=== PATIENT | male | born 1960 | race Caucasian/White ===

== ENCOUNTER 2017-11-28 09:01 | Emergency (ER) | payer OTHER ==
[2017-11-28 09:14] VITALS: O2SAT 98
--- NOTE | 2017-11-28 09:38 | ERPHSYRPT ---
- History of Present Illness Time Seen by Provider: 11/28/17 09:27 Source: patient Exam Limitations: no limitations Patient Subjective Stated Complaint: Chest Pain x2 intermittent, no pain at this time. Triage Nursing Assessment: Pt presents to the ED with complaints of intermittent chest pain x2 days. Pt states he was sent from PCP for complaint due to ekg changes. Pt states no pain at this time. Pt states there is nothing that makes pain better or worse. No distress noted, skin PWD. Physician History: The patient is a 57-year-old male who comes in after being seen at a [facility] for intermittent chest pain. At [facility] he had an EKG done which was claimed to be abnormal. His intermittent chest pain has been occurring for the past 3 days. The chest pain occurs at any time of the day. It will last for 5- 7 minutes. It is on the left side. He considers the pain to be an ache. It is a 2 out of 10 when it occurs. At this time he is not having any chest pain. He denies shortness of breath, nausea, or sweating. He has smoked cigarettes for the past 45 years and quit 5 days ago. He has been on Chantix since November 12. His past medical history is significant for diabetes. He has no surgical history. Timing/Duration: day(s) (3), intermittent, resolved prior to arrival, sudden Severity: mild Modifying Factors: Improves With: nothing Associated Symptoms: chest pain Allergies/Adverse Reactions: No Known Drug Allergies Allergy (Unverified 02/15/16 04:20) Home Medications: Albuterol Sulfate Mdi [Proair Hfa MDI] 2 puff IH Q4HPRN PRN 11/28/17 [ History] Insulin Aspart [Novolog Flexpen] 1 unit SQ ACHS PRN 11/28/17 [History] Metformin HCl [Metformin HCl] 1,000 mg PO BID 11/28/17 [History] Varenicline Tartrate [Chantix] 1 tab PO DAILY 11/28/17 [History] Hx Tetanus, Diphtheria Vaccination/Date Given: No Hx Influenza Vaccination/Date Given: Yes Hx Pneumococcal Vaccination/Date Given: No Immunizations Up to Date: Yes - Review of Systems Constitutional: No Fever, No Chills Eyes: No Symptoms Ears, Nose, & Throat: No Symptoms Respiratory: No Cough, No Dyspnea Cardiac: Chest Pain Abdominal/Gastrointestinal: No Abdominal Pain, No Nausea, No Vomiting, No Diarrhea Genitourinary Symptoms: No Dysuria Musculoskeletal: No Back Pain, No Neck Pain Skin: No Rash Neurological: No Dizziness, No Focal Weakness, No Sensory Changes Psychological: No Symptoms Endocrine: No Symptoms Hematologic/Lymphatic: No Symptoms Immunological/Allergic: No Symptoms All Other Systems: Reviewed and Negative - Past Medical History Pertinent Past Medical History: No Neurological History: No Pertinent History ENT History: No Pertinent History Cardiac History: No Pertinent History Respiratory History: No Pertinent History Endocrine Medical History: Diabetes Type II Musculoskeletal History: No Pertinent History GI Medical History: No Pertinent History History: No Pertinent History Psycho-Social History: No Pertinent History Male Reproductive Disorders: No Pertinent History - Past Surgical History Past Surgical History: No - Social History Smoking Status: Current every day smoker How long have you smoked: 45 years Exposure to second hand smoke: Yes Drug Use: none Patient Lives Alone: No - Nursing Vital Signs Nursing Vital Signs: Initial Vital Signs Temperature 98.5 F 11/28/17 09:10 Pulse Rate 67 11/28/17 09:10 Respiratory Rate 20 11/28/17 09:10 Blood Pressure 120/78 11/28/17 09:10 O2 Sat by Pulse Oximetry 98 11/28/17 09:10 Pain Scale Pain Intensity 0 - Physical Exam General Appearance: no apparent distress, alert Eye Exam: PERRL/EOMI, eyes nml inspection Ears, Nose, Throat Exam: normal ENT inspection, TMs normal, pharynx normal, moist mucous membranes Neck Exam: normal inspection, non-tender, supple, full range of motion Respiratory Exam: normal breath sounds, lungs clear, No respiratory distress Cardiovascular Exam: regular rate/rhythm, normal heart sounds, normal peripheral pulses Gastrointestinal/Abdomen Exam: soft, normal bowel sounds, No tenderness, No mass Rectal Exam: not done Back Exam: normal inspection, normal range of motion, No CVA tenderness, No vertebral tenderness Extremity Exam: normal inspection, normal range of motion, pelvis stable Neurologic Exam: alert, oriented x 3, cooperative, normal mood/affect, nml cerebellar function, nml station & gait, sensation nml, No motor deficits Skin Exam: normal color, warm, dry, No rash Lymphatic Exam: No adenopathy SpO2 Interpretation: normal SpO2: 98 Oxygen Delivery: Room Air - Course EKG Interpreted by Me: RATE, Sinus Rhythm, NORMAL AXIS, NORMAL INTERVALS, NORMAL QRS, NORMAL ST-T - Radiology Exams Chest X-ray Interpretation: Reviewed by me, Teleradiologist Report, Negative (Per Dr Jo) Ordered Tests: Active Orders 24 hr Category Date Time Status Streetcar Dispatcher STAT Care 11/28/17 09:43 Active EKG-ER Only STAT Care 11/28/17 09:42 Active IV Insertion STAT Care 11/28/17 09:42 Active CHEST 2 VIEWS (PA AND LAT) Stat Exams 11/28/17 09:42 Completed CBC W DIFF Stat Lab 11/28/17 10:01 Completed CMP Stat Lab 11/28/17 10:01 Completed D-DIMER QUANTITATION Stat Lab 11/28/17 10:01 Completed NT PRO BNP Stat Lab 11/28/17 10:01 Completed PROTIME WITH INR Stat Lab 11/28/17 10:01 Completed PTT Stat Lab 11/28/17 10:01 Completed TROPONIN Q3H Lab 11/28/17 10:01 Completed TROPONIN Q3H Lab 11/28/17 12:45 Ordered TROPONIN Q3H Lab 11/28/17 15:45 Ordered TROPONIN Q3H Lab 11/28/17 18:45 Ordered TROPONIN Q3H Lab 11/28/17 21:45 Ordered Medication Summary Discontinued Medications Generic Name Dose Route Start Last Admin Trade Name Freq PRN Reason Stop Dose Admin Aspirin 324 mg 11/28/17 09:42 11/28/17 09:54 Baby Aspirin 81 Mg Chew PO 11/28/17 09:43 324 mg STAT ONE Administration Aspirin Confirm 11/28/17 09:54 Baby Aspirin 81 Mg Chew Administered 11/28/17 09:55 Dose 324 mg .ROUTE .STK-MED ONE Lab/Rad Data: Laboratory Result Diagrams 11/28/17 10:01 11/28/17 10:01 Laboratory Results 11/28/17 11/28/17 11/28/17 Range/Units 10:01 10:01 10:01 WBC (4.0-10.5) K/mm3 RBC (4.1-5.6) M/mm3 Hgb (12.5-18.0) gm/dl Hct (42-50) % MCV (78-100) fl MCH (26-32) pg MCHC (32-36) g/dl RDW (11.5-14.0) % Plt Count (150-450) K/mm3 MPV (6-9.5) fl Gran % (36.0-66.0) % Eos # (Auto) (0-0.5) Absolute Lymphs (auto) (1.0-4.6) Absolute Monos (auto) (0.0-1.3) Lymphocytes % (24.0-44.0) % Monocytes % (0.0-12.0) % Eosinophils % (0.00-5.0) % Basophils % (0.0-0.4) % Absolute Granulocytes (1.4-6.9) Basophils # (0-0.4) PT 10.9 (8.83-12.87) SECONDS INR 0.94 (0.8-3.0) APTT 39.1 H (24.1-36.1) SECONDS D-Dimer < 215 L (215-500) ng/mL Sodium 140 (137-145) mmol/L Potassium 4.3 (3.5-5.1) mmol/L Chloride 104 (98-107) mmol/L Carbon Dioxide 28 (22-30) mmol/L Anion Gap 12.1 (5-15) MEQ/L BUN 19 (9-20) mg/dL Creatinine 0.93 (0.66-1.25) mg/dL Estimated GFR > 60.0 ML/MIN Glucose 119 H (74-106) mg/dL Calcium 9.7 (8.4-10.2) mg/dL Total Bilirubin 1.10 (0.2-1.3) mg/dL AST 13 L (17-59) U/L ALT 14 (0-50) U/L Alkaline Phosphatase 76 (38-126) U/L Troponin I < 0.012 (0.000-0.034) ng/mL NT-Pro-B Natriuret Pep 68.1 (0-900) pg/mL Serum Total Protein 6.4 (6.3-8.2) g/dL Albumin 4.1 (3.5-5.0) g/dL 11/28/17 Range/Units 10:01 WBC 8.4 (4.0-10.5) K/mm3 RBC 4.45 (4.1-5.6) M/mm3 Hgb 13.6 (12.5-18.0) gm/dl Hct 40.1 L (42-50) % MCV 90.1 (78-100) fl MCH 30.6 (26-32) pg MCHC 33.9 (32-36) g/dl RDW 12.5 (11.5-14.0) % Plt Count 224 (150-450) K/mm3 MPV 11.5 H (6-9.5) fl Gran % 65.9 (36.0-66.0) % Eos # (Auto) 0.14 (0-0.5) Absolute Lymphs (auto) 1.96 (1.0-4.6) Absolute Monos (auto) 0.73 (0.0-1.3) Lymphocytes % 23.3 L (24.0-44.0) % Monocytes % 8.7 (0.0-12.0) % Eosinophils % 1.7 (0.00-5.0) % Basophils % 0.4 (0.0-0.4) % Absolute Granulocytes 5.56 (1.4-6.9) Basophils # 0.03 (0-0.4) PT (8.83-12.87) SECONDS INR (0.8-3.0) APTT (24.1-36.1) SECONDS D-Dimer (215-500) ng/mL Sodium (137-145) mmol/L Potassium (3.5-5.1) mmol/L Chloride (98-107) mmol/L Carbon Dioxide (22-30) mmol/L Anion Gap (5-15) MEQ/L BUN (9-20) mg/dL Creatinine (0.66-1.25) mg/dL Estimated GFR ML/MIN Glucose (74-106) mg/dL Calcium (8.4-10.2) mg/dL Total Bilirubin (0.2-1.3) mg/dL AST (17-59) U/L ALT (0-50) U/L Alkaline Phosphatase (38-126) U/L Troponin I (0.000-0.034) ng/mL NT-Pro-B Natriuret Pep (0-900) pg/mL Serum Total Protein (6.3-8.2) g/dL Albumin (3.5-5.0) g/dL - Progress Progress Note: 11/28/17 11:24 I have discussed the patient states care with Dr. Pena. We discussed the possibility of unstable angina versus intermittent chest pain. I described the past 3 days of the patient. Dr. Pena recommends the patient be released to home with follow-up with him early next week. Dr. Pena was set up a cardiology appointment for the patient. Counseled pt/family regarding: lab results, diagnosis, need for follow-up, rad results - Departure Time of Disposition: 10:55 Departure Disposition: Home Clinical Impression: Intermittent left-sided chest pain Condition: Stable Critical Care Time: No Referrals: RAJESH PENA MD [Primary Care Provider] - Additional Instructions: You have intermittent chest pain. You were given aspirin 324 mg orally in the ER. At this time your laboratory results were all normal. I discussed the laboratory findings as well as the chest x-ray and EKG with Dr. Pena. Dr. Pena recommends that you be released to home with follow-up in his office early next week. If you develops any more significant worsening chest pain, please return to the ER immediately.
[2017-11-28] MEDS ORDERED: BABY ASPIRIN 81 MG CHEW PO ONE (09:42)
[2017-11-28] MEDS ORDERED: BABY ASPIRIN 81 MG CHEW ONE (09:54)
[2017-11-28 10:04] LABS: BASOPHIL % 0.4 % (0.0-0.4); Basophil (Absolute #) 0.03 (0-0.4); Eosinophil % 1.7 % (0.00-5.0); Eosinophil (Absolute #) 0.14 (0-0.5); Granulocyte Absolute (ANC) 5.56 (1.4-6.9); Granulocytes % 65.9 % (36.0-66.0); Hematocrit 40.1 % (42-50); Hemoglobin 13.6 gm/dl (12.5-18.0); Lymphocyte (Absolute #) 1.96 (1.0-4.6); Lymphocytes % 23.3 % (24.0-44.0); Mean Cell Volume 90.1 fl (78-100); Mean Corpuscular Hemoglobin 30.6 pg (26-32); Mean Corpuscular Hgb Concent. 33.9 g/dl (32-36); Mean Platelet Volume 11.5 fl (6-9.5); Monocyte (Absolute #) 0.73 (0.0-1.3); Monocytes % 8.7 % (0.0-12.0); Platelet Count 224 K/mm3 (150-450); Red Blood Count 4.45 M/mm3 (4.1-5.6); Red Cell Distribution Width 12.5 % (11.5-14.0); White Blood Count 8.4 K/mm3 (4.0-10.5)
[2017-11-28 10:27] LABS: INR 0.94 (0.8-3.0)
[2017-11-28 10:30] LABS: PTT 39.1 SECONDS (24.1-36.1)
[2017-11-28 10:32] LABS: ALBUMIN 4.1 g/dL (3.5-5.0); ALKALINE PHOSPHATASE 76 U/L (38-126); ANION GAP 12.1 MEQ/L (5-15); BLOOD UREA NITROGEN 19 mg/dL (9-20); CHLORIDE 104 mmol/L (98-107); Calcium 9.7 mg/dL (8.4-10.2); Carbon Dioxide 28 mmol/L (22-30); Creatinine 1 0.93 mg/dL (0.66-1.25); Glucose 119 mg/dL (74-106); Potassium 4.3 mmol/L (3.5-5.1); SGOT/AST 13 U/L (17-59); SGPT/ALT 14 U/L (0-50); SODIUM 140 mmol/L (137-145); Total Protein 6.4 g/dL (6.3-8.2)
[2017-11-28 10:34] LABS: D-DIMER QUANTITATION < 215 ng/mL (215-500)
--- NOTE | 2017-11-28 10:34 | XRAY ---
Exam: Two-view chest from 11/28/2017. Comparison: Two-view chest from 02/15/2016. Indication: Left-sided chest pain 3 days. Findings: Upright PA and lateral chest films are submitted for evaluation. The heart size and contour are normal. The carmen and mediastinal structures appear unremarkable. EKG leads are seen in place. There is adequate inflation of the lungs. No focal air space infiltrates, vascular congestion, pneumothorax, or pleural fluid is seen. There is a subtle symmetric density overlying each lung base which may represent the patient's nipples. These are not seen on the lateral image. No acute osseous process is seen. Impression: 1. No acute cardiopulmonary disease is seen. The findings appears similar to 02/15/2016.
[2017-11-28 10:41] LABS: NT PRO BNP 68.1 pg/mL (0-900)
[2017-11-28 11:52] VITALS: BP 114/76; PULSE 80
== END 2017-11-28 11:52 | disposition home or self-care (01) ==
LOC: ED 09:01
DX: R07.9 Chest pain, unspecified (principal); Z79.899 Other long term (current) drug therapy; E11.9 Type 2 diabetes mellitus without complications; Z79.4 Long term (current) use of insulin
CPT/HCPCS: 36000; 36415; 71046; 80053; 83880; 84484; 85025; 85379; 85610; 85730; 93005; 93041; 99284; A9270-GY

== ENCOUNTER 2021-10-27 12:32 | Emergency (ER) | payer OTHER ==
[2021-10-27] MEDS ORDERED: Sodium Chloride 0.9% 1000 ML 1,000 ML IV STA (12:52)
[2021-10-27] MEDS ORDERED: Zofran 4 MG/2 ML VIAL IV ONE (12:54)
[2021-10-27] MEDS ORDERED: SUBLIMAZE 100 MCG/2 ML IV ONE (12:54)
[2021-10-27] MEDS ORDERED: Zofran 4 MG/2 ML VIAL ONE (13:05)
[2021-10-27] MEDS ORDERED: SUBLIMAZE 100 MCG/2 ML ONE (13:06)
[2021-10-27] MEDS ORDERED: Sodium Chloride 0.9% 1000 ML 1,000 ML ONE (13:06)
[2021-10-27 13:23] LABS: Absolute Neutrophil Ct (ANC) 4.21 (1.4-6.9); Basophil (Absolute #) 0.03 (0-0.4); Eosinophil % 1.8 % (0.00-5.0); Eosinophil (Absolute #) 0.11 (0-0.5); Hematocrit 42.2 % (42-50); Hemoglobin 14.5 gm/dl (12.5-18.0); Lymphocyte (Absolute #) 1.56 (1.0-4.6); Lymphocytes % 24.9 % (24.0-44.0); Mean Cell Volume 89.4 fl (78-100); Mean Corpuscular Hemoglobin 30.7 pg (26-32); Mean Corpuscular Hgb Concent. 34.4 g/dl (32-36); Mean Platelet Volume 11.5 fl (7.5-11.0); Monocyte (Absolute #) 0.36 (0.0-1.3); Monocytes % 5.7 % (0.0-12.0); Neutrophil % 67.1 % (36.0-66.0); Platelet Count 179 K/mm3 (150-450); Red Blood Count 4.72 M/mm3 (4.1-5.6); Red Cell Distribution Width 12.2 % (11.5-14.0); White Blood Count 6.3 K/mm3 (4.0-10.5)
[2021-10-27 13:32] LABS: INR 1.03 (0.8-3.0); PROTIME 12.2 SECONDS (9.4-12.5)
--- NOTE | 2021-10-27 13:35 | ERPHSYRPT ---
- History of Present Illness Time Seen by Provider: 10/27/21 12:55 Historian: patient, family Exam Limitations: no limitations Patient Subjective Stated Complaint: pt here for pain to middle right back pain that radiates to front for over a month. 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 He has not sought medical attention and he kept expecting to break out in a rash from shingles since it is sensitive to touch. He did have an appointment scheduled with Dr. Pena on Friday. He has not had any rash and has not complained of any fever chills or sweats nausea vomiting or diarrhea. Timing/Duration: week(s) (4) Activities at Onset: none Quality: burning, stabbing Location: other (Right flank into the right side of the abdomen and right chest.) Severity of Pain-Max: severe Severity of Pain-Current: moderate Modifying Factors: Improves With: nothing Associated Symptoms: denies symptoms Nitro Today/Relief: no nitro taken today Aspirin Treatment Today: no aspirin today Allergies/Adverse Reactions: No Known Drug Allergies Allergy (Verified 10/27/21 12:53) Home Medications: Albuterol Sulfate Mdi [Proair Hfa MDI] 2 puff IH Q4HPRN PRN 11/28/17 [History] Insulin Aspart [Novolog Flexpen] 1 unit SQ ACHS PRN 11/28/17 [History] Gabapentin 300 mg [Neurontin 300 mg] 1 ea TID 10/27/21 [History] Hx Tetanus, Diphtheria Vaccination/Date Given: No Hx Influenza Vaccination/Date Given: Yes Hx Pneumococcal Vaccination/Date Given: No Immunizations Up to Date: Yes Travel Risk - International Travel Have you traveled outside of the country in past 3 weeks: No - Coronavirus Screening Are you exhibiting any of the following symptoms?: No - Vaccine Status Have you recieved a Covid-19 vaccination: Yes [employer]: [employer] - Vaccination Dates Date of 2cond Vaccination (if applicable): 2020 - Review of Systems Constitutional: No Fever, No Chills Eyes: No Symptoms Ears, Nose, & Throat: No Symptoms Respiratory: No Cough, No Dyspnea Cardiac: Chest Pain, No Edema, No Syncope Abdominal/Gastrointestinal: Abdominal Pain, No Nausea, No Vomiting, No Diarrhea Genitourinary Symptoms: Flank Pain, No Dysuria Musculoskeletal: No Back Pain, No Neck Pain Skin: No Rash Neurological: No Dizziness, No Focal Weakness, No Sensory Changes Psychological: No Symptoms Endocrine: No Symptoms All Other Systems: Reviewed and Negative - Past Medical History Pertinent Past Medical History: Yes Neurological History: No Pertinent History ENT History: No Pertinent History Cardiac History: No Pertinent History Respiratory History: No Pertinent History Endocrine Medical History: Diabetes Type II Musculoskeletal History: No Pertinent History GI Medical History: No Pertinent History History: No Pertinent History Psycho-Social History: No Pertinent History Male Reproductive Disorders: No Pertinent History - Past Surgical History Past Surgical History: No - Social History Smoking Status: Current every day smoker How long have you smoked: 45 years Exposure to second hand smoke: Yes Drug Use: none Patient Lives Alone: No - Nursing Vital Signs Nursing Vital Signs: Initial Vital Signs Temperature 98.0 F 10/27/21 12:47 Pulse Rate 77 10/27/21 12:47 Respiratory Rate 18 10/27/21 12:47 Blood Pressure 119/78 10/27/21 12:47 O2 Sat by Pulse Oximetry 98 10/27/21 12:47 Pain Scale Pain Intensity [Right Back] 8 Pain Intensity 8 - Physical Exam General Appearance: mild distress, alert Eye Exam: PERRL/EOMI, eyes nml inspection Ears, Nose, Throat Exam: normal ENT inspection, moist mucous membranes Neck Exam: normal inspection, non-tender, supple, full range of motion Respiratory Exam: normal breath sounds, lungs clear, No respiratory distress Cardiovascular Exam: regular rate/rhythm, normal heart sounds Gastrointestinal/Abdomen Exam: soft, No tenderness, No mass Back Exam: normal inspection, No CVA tenderness, No vertebral tenderness Extremity Exam: normal inspection, normal range of motion Neurologic Exam: alert, oriented x 3, cooperative, normal mood/affect, sensation nml, No motor deficits Skin Exam: normal color, warm, dry SpO2: 98 - Course Nursing assessment & vital signs reviewed: Yes EKG Interpreted by Me: RATE (73), NORMAL AXIS, NORMAL INTERVALS, NORMAL QRS, NORMAL ST-T Ordered Tests: Active Orders 24 hr Category Date Time Status EKG-ER Only STAT Care 10/27/21 12:52 Active IV Insertion STAT Care 10/27/21 12:54 Active ABDOMEN AND PELVIS W CONTRAST [CT] Stat Exams 10/27/21 12:54 Taken CHEST WITH CONTRAST [CT] Stat Exams 10/27/21 12:53 Taken AMYLASE Stat Lab 10/27/21 13:20 Completed CBC W DIFF Stat Lab 10/27/21 13:20 Completed CK-Creatinine Phosphokinase Stat Lab 10/27/21 13:20 Completed CMP Stat Lab 10/27/21 13:20 Completed D-DIMER QUANTITATIVE Stat Lab 10/27/21 13:20 Completed LIPASE Stat Lab 10/27/21 13:20 Completed Lactic Acid Stat Lab 10/27/21 13:15 Completed PROTIME WITH INR Stat Lab 10/27/21 13:20 Completed TROPONIN Q3H Lab 10/27/21 13:20 Completed TROPONIN Q3H Lab 10/27/21 16:00 Ordered TROPONIN Q3H Lab 10/27/21 19:00 Ordered TROPONIN Q3H Lab 10/27/21 22:00 Ordered TROPONIN Q3H Lab 10/28/21 01:00 Ordered UA W/RFX CULTURE Stat Lab 10/27/21 13:33 Completed Medication Summary Discontinued Medications Generic Name Dose Route Start Last Admin Trade Name Colleen PRN Reason Stop Dose Admin Fentanyl Citrate 50 mcg 10/27/21 12:54 10/27/21 13:08 Fentanyl Citrate 100 Mcg/2 Ml* Vial IV 10/27/21 12:55 50 mcg STAT ONE Administration Fentanyl Citrate Confirm 10/27/21 13:06 Fentanyl Citrate 100 Mcg/2 Ml* Vial Administered 10/27/21 13:07 Dose 100 mcg .ROUTE .STK-MED ONE Sodium Chloride 1,000 mls @ 999 mls/hr 10/27/21 12:52 10/27/21 14:16 Sodium Chloride 0.9% 1000 Ml IV 10/27/21 13:52 Infused .Q1H1M STA Infusion Sodium Chloride Confirm 10/27/21 13:06 Sodium Chloride 0.9% 1000 Ml Administered 10/27/21 13:07 Dose 1,000 mls @ ud .ROUTE .STK-MED ONE Ondansetron HCl 4 mg 10/27/21 12:54 10/27/21 13:08 Ondansetron Hcl 4 Mg/2 Ml Vial IV 10/27/21 12:55 4 mg STAT ONE Administration Ondansetron HCl Confirm 10/27/21 13:05 Ondansetron Hcl 4 Mg/2 Ml Vial Administered 10/27/21 13:06 Dose 4 mg .ROUTE .STK-MED ONE Lab/Rad Data: Laboratory Result Diagrams 10/27/21 13:20 10/27/21 13:20 Laboratory Results 10/27/21 10/27/21 10/27/21 Range/Units 13:33 13:20 13:20 WBC (4.0-10.5) K/mm3 RBC (4.1-5.6) M/mm3 Hgb (12.5-18.0) gm/dl Hct (42-50) % MCV (78-100) fl MCH (26-32) pg MCHC (32-36) g/dl RDW (11.5-14.0) % Plt Count (150-450) K/mm3 MPV (7.5-11.0) fl Gran % (36.0-66.0) % Eos # (Auto) (0-0.5) Absolute Lymphs (auto) (1.0-4.6) Absolute Monos (auto) (0.0-1.3) Lymphocytes % (24.0-44.0) % Monocytes % (0.0-12.0) % Eosinophils % (0.00-5.0) % Basophils % (0.0-0.4) % Absolute Granulocytes (1.4-6.9) Basophils # (0-0.4) PT 12.2 (9.4-12.5) SECONDS INR 1.03 (0.8-3.0) D-Dimer 377 (215-500) ng/mL Sodium (137-145) mmol/L Potassium (3.5-5.1) mmol/L Chloride (98-107) mmol/L Carbon Dioxide (22-30) mmol/L Anion Gap (5-15) MEQ/L BUN (9-20) mg/dL Creatinine (0.66-1.25) mg/dL Estimated GFR ML/MIN Glucose (74-106) mg/dL Lactic Acid (0.4-2.0) Calcium (8.4-10.2) mg/dL Total Bilirubin (0.2-1.3) mg/dL AST (17-59) U/L ALT (0-50) U/L Alkaline Phosphatase (38-126) U/L Creatine Kinase (55-170) U/L Troponin I < 0.012 (0.000-0.034) ng/mL Serum Total Protein (6.3-8.2) g/dL Albumin (3.5-5.0) g/dL Amylase (30-110) U/L Lipase (23-300) U/L Urinalys Dipstick Clnc MAIN LAB Urine Color YELLOW (YELLOW) Urine Appearance CLEAR (CLEAR) Urine pH 7.5 (5-6) Ur Specific [place] 1.020 (1.005-1.025) POC Urine Protein Conf NEGATIVE (Negative) Urine Ketones NEGATIVE (NEGATIVE) Urine Nitrite NEGATIVE (NEGATIVE) Urine Bilirubin NEGATIVE (NEGATIVE) Urine Urobilinogen 1 (0-1) mg/dL Urine Leukocytes NEGATIVE (NEGATIVE) Urine WBC (Auto) NONE (0-5) /HPF Urine RBC (Auto) NONE (0-2) /HPF U Epithel Cells (Auto) NONE (FEW) /HPF Urine Bacteria (Auto) NONE (NEGATIVE) /HPF Urine RBC NEGATIVE (0-5) Omar/ul Ur Culture Indicated? NO Urine Glucose >=1000 (NEGATIVE) mg/dL 10/27/21 10/27/21 10/27/21 Range/Units 13:20 13:20 13:15 WBC 6.3 (4.0-10.5) K/mm3 RBC 4.72 (4.1-5.6) M/mm3 Hgb 14.5 (12.5-18.0) gm/dl Hct 42.2 (42-50) % MCV 89.4 (78-100) fl MCH 30.7 (26-32) pg MCHC 34.4 (32-36) g/dl RDW 12.2 (11.5-14.0) % Plt Count 179 (150-450) K/mm3 MPV 11.5 H (7.5-11.0) fl Gran % 67.1 H (36.0-66.0) % Eos # (Auto) 0.11 (0-0.5) Absolute Lymphs (auto) 1.56 (1.0-4.6) Absolute Monos (auto) 0.36 (0.0-1.3) Lymphocytes % 24.9 (24.0-44.0) % Monocytes % 5.7 (0.0-12.0) % Eosinophils % 1.8 (0.00-5.0) % Basophils % 0.5 (0.0-0.4) % Absolute Granulocytes 4.21 (1.4-6.9) Basophils # 0.03 (0-0.4) PT (9.4-12.5) SECONDS INR (0.8-3.0) D-Dimer (215-500) ng/mL Sodium 138 (137-145) mmol/L Potassium 4.1 (3.5-5.1) mmol/L Chloride 103 (98-107) mmol/L Carbon Dioxide 26 (22-30) mmol/L Anion Gap 13.4 (5-15) MEQ/L BUN 20 (9-20) mg/dL Creatinine 0.89 (0.66-1.25) mg/dL Estimated GFR > 60.0 ML/MIN Glucose 293 H (74-106) mg/dL Lactic Acid 1.6 (0.4-2.0) Calcium 9.0 (8.4-10.2) mg/dL Total Bilirubin 1.70 H (0.2-1.3) mg/dL AST 24 (17-59) U/L ALT 18 (0-50) U/L Alkaline Phosphatase 91 (38-126) U/L Creatine Kinase 55 (55-170) U/L Troponin I (0.000-0.034) ng/mL Serum Total Protein 6.4 (6.3-8.2) g/dL Albumin 3.9 (3.5-5.0) g/dL Amylase 49 (30-110) U/L Lipase 84 (23-300) U/L Urinalys Dipstick Clnc Urine Color (YELLOW) Urine Appearance (CLEAR) Urine pH (5-6) Ur Specific [place] (1.005-1.025) POC Urine Protein Conf (Negative) Urine Ketones (NEGATIVE) Urine Nitrite (NEGATIVE) Urine Bilirubin (NEGATIVE) Urine Urobilinogen (0-1) mg/dL Urine Leukocytes (NEGATIVE) Urine WBC (Auto) (0-5) /HPF Urine RBC (Auto) (0-2) /HPF U Epithel Cells (Auto) (FEW) /HPF Urine Bacteria (Auto) (NEGATIVE) /HPF Urine RBC (0-5) Omar/ul Ur Culture Indicated? Urine Glucose (NEGATIVE) mg/dL - Progress Progress: unchanged Air Movement: good Blood Culture(s) Obtained: No Antibiotics given: No - Departure Departure Disposition: AMA Clinical Impression: Chest pain Condition: Stable Critical Care Time: No Referrals: RAJESH PENA MD [Primary Care Provider] - Follow up/PCP as directed
[2021-10-27 13:43] LABS: ALBUMIN 3.9 g/dL (3.5-5.0); ALKALINE PHOSPHATASE 91 U/L (38-126); AMYLASE 49 U/L (30-110); ANION GAP 13.4 MEQ/L (5-15); BLOOD UREA NITROGEN 20 mg/dL (9-20); CHLORIDE 103 mmol/L (98-107); CK-Creatinine Phosphokinase 55 U/L (55-170); Carbon Dioxide 26 mmol/L (22-30); Creatinine 1 0.89 mg/dL (0.66-1.25); EST GLOMERULAR FILTRATION RATE > 60.0 ML/MIN; Glucose 293 mg/dL (74-106); LIPASE 84 U/L (23-300); Potassium 4.1 mmol/L (3.5-5.1); SGOT/AST 24 U/L (17-59); SGPT/ALT 18 U/L (0-50); SODIUM 138 mmol/L (137-145); Total Protein 6.4 g/dL (6.3-8.2)
[2021-10-27 13:56] LABS: Appearance CLEAR (CLEAR)
[2021-10-27 13:57] LABS: Bilirubin NEGATIVE (NEGATIVE); Dipstick done @ ? MAIN LAB; Glucose >=1000 mg/dL (NEGATIVE); Ketones NEGATIVE (NEGATIVE); Nitrite NEGATIVE (NEGATIVE); Ph 7.5 (5-6); Protein,Urine Dip NEGATIVE (Negative); RBC NEGATIVE Ery/ul (0-5); Urobilinogen 1 mg/dL (0-1)
[2021-10-27 14:15] LABS: Urine Cultured Indicated? NO
[2021-10-27 14:56] VITALS: BP 123/69; PULSE 67
[2021-10-27 15:33] VITALS: O2SAT 98
--- NOTE | 2021-10-27 19:54 | XRAY ---
Indication: Right flank/abdomen and left shoulder pain. Pulmonary embolus. Multiple contiguous axial images obtained through the chest using 100 cc Isovue 370 contrast and PE protocol. Comparison: None There is good opacification of the pulmonary arteries to include the lobar and segmental branches. No pulmonary embolus. Heart is not enlarged. Aorta is normal in course and caliber. Small subcarinal partially calcified node. 1.5 x 0.8 cm right infrahilar node. Lungs are inflated with a few tiny bilateral lower lobe noncalcified nodules, largest right posterior gutter measuring 1.6 cm. Nodules are indeterminant. No infiltrate, consolidation, or effusion. Bony thorax intact. CT abdomen/pelvis reported separately. Impression: 1. Negative pulmonary embolus. No acute cardiopulmonary abnormalities. 2. Multiple small indeterminant bilateral lower lobe noncalcified nodules. Outside comparison studies recommended if available. If not, PET CT may yield further information. Comment: Preliminary interpretation made by [facility]. No critical discrepancy.
--- NOTE | 2021-10-27 19:59 | XRAY ---
Indication: Right flank and left shoulder pain. Multiple contiguous axial images obtained through the abdomen and pelvis using 100 cc Isovue 370 contrast. Comparison: None CT chest reported separately. Stomach is moderately distended with food/fluid. Noncontrasted stomach and bowel loops appear nonobstructed. Normal appendix. There is mild/moderate diffuse fecal debris throughout the colon. 5 cm right urinary bladder diverticulum. Gallbladder contracted without gallstones. No free fluid/air. Remaining liver, gallbladder, pancreas, spleen, adrenal glands, kidneys, ureters, and bladder are unremarkable. Mild scattered aortoiliac calcifications. No AAA or pathologic retroperitoneal lymphadenopathy. Osseous structures intact with moderate L5-S1 degenerative disc disease. No ventral or inguinal hernias. Impression: 1. Diffuse fecal stasis, 5 cm urinary bladder diverticulum, and L5-S1 degenerative disc disease. 2. Remaining CT abdomen/pelvis with contrast exam is negative. Comment: Preliminary interpretation made by C. No critical discrepancy.
== END 2021-10-27 15:20 | disposition left against medical advice (07) ==
LOC: ED 12:32
DX: R07.9 Chest pain, unspecified (principal); M54.89 Other dorsalgia; R10.11 Right upper quadrant pain; R10.31 Right lower quadrant pain; E11.9 Type 2 diabetes mellitus without complications; Z79.4 Long term (current) use of insulin; Z79.899 Other long term (current) drug therapy; Z72.0 Tobacco use
CPT/HCPCS: 36415; 71260; 74177; 80053; 81015; 82150; 82550; 83605; 83690; 84484; 85025; 85379; 85610; 93005; 96360; 96374; 96375; 99284; J2405; J3010

== ENCOUNTER 2021-12-12 06:57 | Day surgery (SDC) | payer OTHER | END 2021-12-12 07:24 | disposition home or self-care (01) | LOC: SDC-PAIN 06:57 | PROVIDERS: ATTEND Psychiatry & Neurology Pain Medicine | DX: R73.9 Hyperglycemia, unspecified (principal); Z53.8 Procedure and treatment not carried out for other reasons | CPT/HCPCS: 82947 ==

== ENCOUNTER 2021-12-19 07:47 | Day surgery (SDC) | payer OTHER ==
[2021-12-19] MEDS ORDERED: Depo-Medrol 40 MG/ML IM ONE (07:48)
[2021-12-19] MEDS ORDERED: Marcaine Mpf 0.5% Vial 30 Ml IJ ONE (07:48)
[2021-12-19] MEDS ORDERED: DIPRIVAN 200 MG/20 ML IV ONE (09:02)
[2021-12-19] MEDS ORDERED: Lactated Ringers 1,000 ML IV ONE (10:03)
--- NOTE | 2021-12-19 10:45 | XRAY ---
Indication: Right at T9-T11 intercostal nerve block. Intraoperative fluoroscopy provided for 20 seconds. 3 digital spot image submitted for interpretation demonstrates needle tips projecting over the lateral arcs of the right ribs presumed 9, 10, and 11. Correlate with intraoperative findings/report.
--- NOTE | 2021-12-19 10:48 | XRAY ---
20 seconds fluoroscopy time in surgery for right T9, T10, and T11 intercostal nerve block.
== END 2021-12-19 09:30 | disposition home or self-care (01) ==
LOC: SDC-PAIN 07:47
PROVIDERS: ATTEND Psychiatry & Neurology Pain Medicine
DX: G58.0 Intercostal neuropathy (principal); E11.9 Type 2 diabetes mellitus without complications; Z79.899 Other long term (current) drug therapy
CPT/HCPCS: 64420; 64421; 71100; 77002; 82947; J1030; J2704

== ENCOUNTER 2022-03-05 08:55 | Observation (INO) | payer OTHER ==
[2022-03-05] MEDS ORDERED: BABY ASPIRIN 81 MG CHEW PO ONE (09:20)
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
[2022-03-05] MEDS ORDERED: NITRO-BID 2% UD PACKETS TOP ONE (09:21)
[2022-03-05] MEDS ORDERED: BABY ASPIRIN 81 MG CHEW ONE (09:24)
[2022-03-05] MEDS ORDERED: NITRO-BID 2% UD PACKETS ONE (09:24)
--- NOTE | 2022-03-05 09:34 | XRAY ---
Indication: Chest pain and short of breath. Comparison: November 28, 2017 Portable chest demonstrates small bibasilar pulmonary nodules as reported on CT chest/abdomen/pelvis exam October 27, 2021. Remaining heart, lungs, and bony thorax normal.
[2022-03-05 09:37] LABS: Absolute Neutrophil Ct (ANC) 6.73 x10^3/uL (1.4-6.9); Basophil (Absolute #) 0.04 x10^3/uL (0-0.4); Eosinophil (Absolute #) 0.09 x10^3/uL (0-0.5); Hematocrit 45.5 % (42-50); Hemoglobin 15.5 g/dL (12.5-18.0); Lymphocyte (Absolute #) 1.74 x10^3/uL (1.0-4.6); Mean Cell Volume 90.1 fL (78-100); Mean Corpuscular Hemoglobin 30.7 pg (26-32); Mean Corpuscular Hgb Concent. 34.1 g/dL (32-36); Mean Platelet Volume 11.3 fL (7.5-11.0); Monocyte (Absolute #) 0.54 x10^3/uL (0.0-1.3); Monocytes % 5.9 % (0.0-12.0); Neutrophil % 73.4 % (36.0-66.0); Platelet Count 232 x10^3/uL (150-450); Red Blood Count 5.05 x10^6/uL (4.1-5.6); Red Cell Distribution Width 12.3 % (11.5-14.0); White Blood Count 9.2 x10^3/uL (4.0-10.5)
[2022-03-05 09:56] LABS: INFLUENZA A NEGATIVE (NEGATIVE); INFLUENZA B NEGATIVE (NEGATIVE); RESPIRATORY SYNCTIAL VIRUS NEGATIVE (Negative); SARS-CoV-2 Xpert Express NEGATIVE (NEGATIVE)
[2022-03-05 09:59] LABS: ALBUMIN 4.1 g/dL (3.5-5.0); ALKALINE PHOSPHATASE 121 U/L (38-126); ANION GAP 15.7 MEQ/L (5-15); BLOOD UREA NITROGEN 25 mg/dL (9-20); CHLORIDE 99 mmol/L (98-107); Calcium 9.6 mg/dL (8.4-10.2); Carbon Dioxide 23 mmol/L (22-30); EST GLOMERULAR FILTRATION RATE > 60.0 ML/MIN; Glucose 483 mg/dL (74-106); NT PRO BNP 33.7 pg/mL (0-900); SGOT/AST 17 U/L (17-59); SGPT/ALT 18 U/L (0-50); SODIUM 134 mmol/L (137-145); Total Protein 6.9 g/dL (6.3-8.2)
[2022-03-05] MEDS ORDERED: TYLENOL 325 MG PO PRN (14:45)
[2022-03-05] MEDS ORDERED: Senokot-S Tablet PO PRN (14:45)
[2022-03-05] MEDS ORDERED: MILK OF MAGNESIA 30 ML PO PRN (14:45)
[2022-03-05] MEDS ORDERED: MAALOX ES 30 ML UNIT DOSE PO PRN (14:45)
[2022-03-05] MEDS ORDERED: Zofran 4 MG/2 ML VIAL IV PRN (14:45)
[2022-03-05] MEDS ORDERED: Nicoderm CQ 21 MG TOP SCH (16:30)
[2022-03-05 16:31] LABS: Appearance CLEAR (CLEAR); Bilirubin NEGATIVE (NEGATIVE); Dipstick done @ ? MAIN LAB; Glucose >=1000 mg/dL (NEGATIVE); Ketones NEGATIVE (NEGATIVE); Nitrite NEGATIVE (NEGATIVE); Protein,Urine Dip NEGATIVE (Negative); RBC NEGATIVE Ery/ul (0-5); Specific Gravity 1.025 (1.005-1.025); Urobilinogen 0.2 mg/dL (0-1)
[2022-03-05 16:38] LABS: Bacteria RARE /HPF (NEGATIVE); Mucus SLIGHT /HPF (NEGATIVE); WBC 0-2 /HPF (0-5)
[2022-03-05] MEDS ORDERED: ALBUTEROL IH PRN (16:51)
[2022-03-05 16:52] LABS: Urine Cultured Indicated? NO
[2022-03-05] MEDS ORDERED: VENTOLIN COMMON CANISTER IH PRN (16:55)
[2022-03-05] MEDS: HUMALOG SQ PRN ×2 (17:37→21:51)
[2022-03-05] MEDS: NEURONTIN PO SCH (21:51)
[2022-03-05] MEDS: Novolin 70/30 SQ SCH (21:51)
[2022-03-05] MEDS ORDERED: INSULIN NPH HUM SQ SCH (22:00)
[2022-03-05] MEDS ORDERED: INS SQ SCH (22:00)
[2022-03-05] MEDS ORDERED: [UNRECOGNIZED DRUG - OTHER] SQ SCH (22:00)
[2022-03-05] MEDS ORDERED: REG INSULIN SQ SCH (22:00)
[2022-03-06 04:41] VITALS: O2SAT 97
[2022-03-06 05:43] LABS: Risk Ratio 7.8
[2022-03-06 07:56] VITALS: BP 119/63; PULSE 88
[2022-03-06] MEDS: Novolin 70/30 SQ SCH (08:23)
[2022-03-06] MEDS: NEURONTIN PO SCH (08:23)
--- NOTE | 2022-03-06 09:33 | PCM.SSS ---
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 (36.0-66.0) % Immature Gran % (Auto) (0.00-0.4) % Nucleat RBC Rel Count (0.00-0.1) % Eos # (Auto) (0-0.5) x10^3/uL Immature Gran # (Auto) (0.00-0.03) x10^3u/L Absolute Lymphs (auto) (1.0-4.6) x10^3/uL Absolute Monos (auto) (0.0-1.3) x10^3/uL Absolute Nucleated RBC (0.00-0.01) x10^3u/L Lymphocytes % (24.0-44.0) % Monocytes % (0.0-12.0) % Eosinophils % (0.00-5.0) % Basophils % (0.0-0.4) % Absolute Granulocytes (1.4-6.9) x10^3/uL Basophils # (0-0.4) x10^3/uL D-Dimer (0.0-0.50) mg/L Sodium (137-145) mmol/L Potassium (3.5-5.1) mmol/L Chloride (98-107) mmol/L Carbon Dioxide (22-30) mmol/L Anion Gap (5-15) MEQ/L BUN (9-20) mg/dL Creatinine (0.66-1.25) mg/dL Estimated GFR ML/MIN Glucose (74-106) mg/dL POC Glucometer 226 H (74 to 106) mg/dL Calcium (8.4-10.2) mg/dL Total Bilirubin (0.2-1.3) mg/dL AST (17-59) U/L ALT (0-50) U/L Alkaline Phosphatase (38-126) U/L Troponin I (0.000-0.034) ng/mL NT-Pro-B Natriuret Pep (0-900) pg/mL Serum Total Protein (6.3-8.2) g/dL Albumin (3.5-5.0) g/dL Triglycerides (30-150) mg/dL Cholesterol (50-200) mg/dL LDL Cholesterol (30-100) mg/dL HDL Cholesterol (40-60) mg/dL Heart Disease Risk Ratio Urinalys Dipstick Clnc Urine Color (YELLOW) Urine Appearance (CLEAR) Urine pH (5-6) Ur Specific Liguori (1.005-1.025) POC Urine Protein Conf (Negative) Urine Ketones (NEGATIVE) Urine Nitrite (NEGATIVE) Urine Bilirubin (NEGATIVE) Urine Urobilinogen (0-1) mg/dL Urine Leukocytes (NEGATIVE) Urine WBC (Auto) (0-5) /HPF Urine RBC (Auto) (0-2) /HPF U Epithel Cells (Auto) Urine Bacteria (Auto) (NEGATIVE) /HPF Urine RBC (0-5) Omar/ul Urine Mucus (Auto) (NEGATIVE) /HPF Ur Culture Indicated? Urine Glucose (NEGATIVE) mg/dL Influenza Type A Ag (NEGATIVE) Influenza Type B Ag (NEGATIVE) RSV (PCR) (Negative) SARS-CoV-2 (PCR) (NEGATIVE) Micro Results-Entire Visit: Accuchecks Date 03/06/22 Date 03/05/22 Time 07:55 Time 16:22 - Radiology Exams Ordered Rad Exams-Entire Visit: Radiology Procedures Category Date Time Status CHEST 1 VIEW (PORTABLE) Stat Exams 03/05/22 09:10 Completed - Procedures and Test Procedures and Tests throughout Hospitalization: Therapy Orders & Screens 03/05/22 17:00 EKG ROUTINE Comment: 03/06/22 05:00 EKG ROUTINE Comment: 03/06/22 07:00 Respiratory Therapy Assessment DAILY Comment: Diagnosis: Chest Pain 03/07/22 05:00 EKG ROUTINE Comment: 03/08/22 05:00 EKG ROUTINE Comment: - Discharge Disposition: Home, Self-Care Condition: Stable Prescriptions: New Atorvastatin Calcium 20 mg PO DAILY #30 tablet Aspirin EC 81 mg [Ecotrin 81 mg] 81 mg PO DAILY #30 tablet Continue Albuterol Sulfate Mdi [Proair Hfa MDI] 2 puff IH Q4HPRN PRN PRN Reason: sob Gabapentin [Neurontin ] 600 mg PO TID AMITRIPTYLINE HCL 50 mg Tab [AMITRIPTYLINE HCL 50 mg Tablet] 50 mg PO HS Insulin NPH Hum/Reg Insulin Hm [Novolin 70-30 Flexpen] 20 unit SQ BID Outpatient Orders: Stress Test: Lexiscan Facility: [facility], Location: RESPIRATORY THERAPY Instructions: Chest Pain (DC) Additional Instructions: no strenuous activity prior to seeing Dr Guaman and having stress test. Follow up with: RAJESH PENA MD [Primary Care Provider] - 03/14/22 11:15 am FAHAD GUAMAN MD [CONSULTING PHYSICIAN] - (patient has a pending consult)
== END 2022-03-06 10:10 | disposition home or self-care (01) ==
LOC: ED 08:55 → MED SURG 14:40
PROVIDERS: ADMIT Family Medicine; ATTEND Family Medicine
DX: R07.9 Chest pain, unspecified (principal); E11.9 Type 2 diabetes mellitus without complications; F17.200 Nicotine dependence, unspecified, uncomplicated; Z79.899 Other long term (current) drug therapy; Z20.828 Contact with and (suspected) exposure to other viral communicable diseases
CPT/HCPCS: 0241U; 36000; 36415; 71045; 80053; 80061; 81015; 82947; 83721; 83880; 84484; 85025; 85379; 93005; 93041; 93268; 94760; 99285; G0378; J1815; J1817; A9270-GY